=== PATIENT | male | born 1950 | race Caucasian/White ===

== ENCOUNTER 2017-12-04 07:22 | Day surgery (SDC) | payer OTHER ==
[~2017-12-04] VITALS: Ht 177.8 cm; Wt 84.4 kg
[~2017-12-04 07:22] MED LIST: ACETAMINOPHEN-1 EAC1 PO; ARMOUR THYROID60 M1 PO; ASPIR-TRIN325 M1 PO; ASPIRIN E.C.81 M1 PO; Armour Thyroid; COZAAR50 MG PO; CRESTOR5 MG PO; Coreg PO; DEPO-TESTOS200 MG/ML IM; FLOMAX0.4 MG PO; LEXAPRO10 MG PO; NIASPAN,SLO-N1000 MG PO; Omega III EPA + DHA PO; PLAVIX75 MG PO; PRINIVIL5 MG PO; THERAGRAN1 TABLET PO; VITAMIN D-3 PO; VITAMIN D32000 UNI1 PO; ZETIA10 MG PO; ZYLOPRIM300 MG PO; Zestril,Prinivil PO; Zyloprim PO; [UNRECOGNIZED DRUG - OTHER] SC
[2017-12-04 07:47] VITALS: BP 129/85
[2017-12-04] MEDS ORDERED: HYDROCODON-ACE1 EAC7 PO (09:50)
[2017-12-04 10:02] VITALS: BP 107/72
[2017-12-04 10:40] VITALS: BP 115/74
== END 2017-12-04 11:00 | disposition home or self-care (01) ==
LOC: SDC 07:22
PROC: 0WUF0JZ Supplement Abdominal Wall with Synthetic Substitute, Open Approach (ICD-10-PCS; principal; 2017-12-04)
DX: K42.9 Umbilical hernia without obstruction or gangrene (principal); I25.10 Atherosclerotic heart disease of native coronary artery without angina pectoris; I10 Essential (primary) hypertension; I25.2 Old myocardial infarction; J45.909 Unspecified asthma, uncomplicated; E03.9 Hypothyroidism, unspecified; E78.5 Hyperlipidemia, unspecified; Z95.5 Presence of coronary angioplasty implant and graft; Z95.810 Presence of automatic (implantable) cardiac defibrillator
CPT/HCPCS: C1781; J0131; J0690; J1100; J1885; J2405; J3010; S0020